=== PATIENT | male | born 1955 | race Caucasian/White ===

== ENCOUNTER 2024-04-21 09:12 | Outpatient (CLI) | payer MEDICARE, OTHER | END 2024-04-21 09:13 | disposition home or self-care (01) | LOC: ULT 09:12 | PROVIDERS: ATTEND Internal Medicine Nephrology | DX: I12.9 Hypertensive chronic kidney disease with stage 1 through stage 4 chronic kidney disease, or unspecified chronic kidney disease (principal); N18.9 Chronic kidney disease, unspecified; N28.1 Cyst of kidney, acquired | CPT/HCPCS: 76770; 93975 ==